=== PATIENT | male | born 1990 | race Caucasian/White ===

== ENCOUNTER 2018-01-06 12:50 | Emergency (ER) | payer OTHER ==
[~2018-01-06] VITALS: Ht 193 cm; Wt 86.3 kg
[2018-01-06 13:05] VITALS: BP 132/78
[2018-01-06] MEDS ORDERED: AZIT250T PO (14:27)
[2018-01-06] MEDS ORDERED: BENZ-16 PO (14:27)
== END 2018-01-06 15:07 | disposition home or self-care (01) ==
LOC: ER 12:50
DX: J06.9 Acute upper respiratory infection, unspecified (principal)
CPT/HCPCS: 87502; 87503; 99284